=== PATIENT | male | born 1935 | race Caucasian/White ===

== ENCOUNTER 2017-04-30 11:33 | Inpatient (IN) | payer MEDICARE, MEDICAID ==
--- NOTE | 2017-04-30 12:41 | ED PDOC ---
HPI: Psych/Substance Abuse Time Seen by Provider: 04/30/17 11:51 Chief Complaint (Nursing): Psychiatric Evaluation Chief Complaint (Provider): Psych evaluation History Per: Patient History/Exam Limitations: no limitations Onset/Duration Of Symptoms: Days (1) Additional Complaint(s): Patient is an 82 y/o male with no known psychiatric history brought to the emergency department by EMS for a psych evaluation. Reports that workers had come to his apartment today, pounding on his door, to change his locks but he was too afraid to open the door. Instead he urged them to break it down with force. Police and EMS were then called in. Admits that he is depressed and lives alone. Denies suicidal ideation, homicidal ideation, hallucinations, or other complaints. PCP: none provided. Past Medical History Reviewed: Historical Data, Nursing Documentation, Vital Signs Vital Signs: Last Vital Signs Temp 98.7 F 04/30/17 11:37 Pulse 107 H 04/30/17 11:37 Resp 18 04/30/17 11:37 BP 152/91 H 04/30/17 11:37 Pulse Ox 97 04/30/17 11:37 - Medical History Other PMH: Psoriasis - Family History Family History: States: Unknown Family Hx - Social History Current smoker - smoking cessation education provided: No Ex-Smoker (has not smoked in the last 12 months): No Alcohol: None Drugs: Denies - Home Medications Home Medications: Ambulatory Orders Medication Instructions Recorded No Known Home Med 04/30/17 - Allergies Allergies/Adverse Reactions: Allergies Allergy/AdvReac Type Severity Reaction Status Date / Time No Known Allergies Allergy Verified 05/02/14 19:25 Review of Systems ROS Statement: Except As Marked, All Systems Reviewed And Found Negative Psych: Positive for: Depression. Negative for: Suicidal ideation (or homicidal ideation), Other (hallucinations) Physical Exam - Reviewed Nursing Documentation Reviewed: Yes Vital Signs Reviewed: Yes - Physical Exam Appears: Positive for: No Acute Distress (comfortable). Negative for: Uncomfortable Head Exam: Positive for: ATRAUMATIC, NORMAL INSPECTION, NORMOCEPHALIC Skin: Positive for: Normal Color, Warm, Dry Eye Exam: Positive for: Normal appearance Neck: Positive for: Normal Cardiovascular/Chest: Positive for: Regular Rate, Rhythm. Negative for: Murmur Respiratory: Positive for: Normal Breath Sounds. Negative for: Accessory Muscle Use, Respiratory Distress Extremity: Positive for: Normal ROM Neurologic/Psych: Positive for: Alert, Oriented (x3) - Laboratory Results Result Diagrams: 04/30/17 15:50 04/30/17 15:50 - ECG O2 Sat by Pulse Oximetry: 97 (RA) Pulse Ox Interpretation: Normal Medical Decision Making Medical Decision Makin:00 Initial impression: psych evaluation, possible depression Crisis evaluation pending. 1515 As per forensic social worker Ana, patient needs labs for medical clearance 1620 All labs reviewed. In my clinical judgment patient is medically cleared and stable for psychiatric admission. 163 Patient signs in and accepted to psych service under Dr Mai for depression ~ Scribe Attestation: Documented by María Hernandez, acting as a scribe for THAO Rodriguez. Provider Scribe Attestation: All medical record entries made by the Scribe were at my direction and personally dictated by me. I have reviewed the chart and agree that the record accurately reflects my personal performance of the history, physical exam, medical decision making, and the department course for this patient. I have also personally directed, reviewed, and agree with the discharge instructions and disposition. Disposition - Clinical Impression Clinical Impression: Depressive disorder - Patient ED Disposition Is Patient to be Admitted: Yes - Disposition Disposition Time: 16:30 Condition: STABLE - Pt Status Changed To: Hospital Disposition Of: Inpatient - Admit Certification Admit to Inpatient:: After my assessment, the patient will require hospitalization for at least two midnights. This is because of the severity of symptoms shown, intensity of services needed, and/or the medical risk in this patient being treated as an outpatient. - POA Present On Arrival: None
[2017-04-30 16:06] LABS: BASO % 0.4 % (0.0-2.0); EOS % 0.1 % (0.0-4.0); HEMATOCRIT 42.9 % (35.0-51.0); LYMPH % 37.7 % (20.0-40.0); MEAN CELL VOLUME 95.8 fl (80.0-94.0); MEAN CORPUSCULAR HEMOGLOBIN 32.1 pg (27.0-31.0); MEAN CORPUSCULAR HGB CONC 33.5 g/dL (33.0-37.0); MEAN PLATELET VOLUME 8.2 fl (7.2-11.7); MONO # 0.6 K/uL (0.0-0.8); NEUT # 4.4 K/uL (1.8-7.0); NEUT % 54.8 % (50.0-75.0); RED CELL DISTRIBUTION WIDTH 13.5 % (11.5-14.5)
[2017-04-30 16:16] LABS: ALCOHOL SERUM < 10 mg/dl (0-10); BLOOD UREA NITROGEN 18 mg/dl (9-20); CARBON DIOXIDE 27 mmol/L (22-30); CHLORIDE 99 mmol/L (98-107); GFR AFRICAN-AMERICAN > 60; GLUCOSE,RANDOM 143 mg/dL (75-110); POTASSIUM 4.1 MMOL/L (3.6-5.0); SODIUM 137 mmol/l (132-148)
[2017-04-30 16:25] LABS: RBC URINE 7 /hpf (0-3); URINE BACTERIA RARE (<OCC); URINE BILIRUBIN NEGATIVE (NEGATIVE); URINE BLOOD SMALL (NEGATIVE); URINE COLOR AMBER (YELLOW); URINE GLUCOSE (UA) NEG (Normal); URINE KETONE TRACE mg/dL (NEGATIVE); URINE LEUKOCYTE ESTERASE NEG Leu/uL (Negative); URINE PROTEIN 30 mg/dL (NEGATIVE); URINE UROBILINOGEN 0.2-1.0 mg/dL (0.2-1.0); WBC URINE 3 /hpf (0-5)
[2017-04-30 16:45] VITALS: O2SAT 97
[2017-04-30] MEDS ORDERED: Bismuth Subsalicylate 262 mg/15 ml Sus (240 ml) PO PRN (20:00)
[2017-04-30] MEDS ORDERED: Alum-Mag Hydrox-Simethicone Susp (30 mL) PO PRN (20:00)
[2017-04-30] MEDS ORDERED: Magnesium Hydroxide Susp 30 ml UD PO PRN (20:00)
--- NOTE | 2017-04-30 20:00 | PCM.BM ---
<Elvia Curry - Last Filed: 04/30/17 19:59> Treatment Plan Problems - Problems identified on initial assessmt Hopelessness/Helplessness Date Initiated: 04/30/17 Time Initiated: 19:59 Assessment reference: NA Status: Active Treatment assets and liabiliti Patient Assests: adapts well, cooperative, insightful, good support system, negotiates basic needs Patient Liabilities: live alone - Milieu Protocol Maintain good personal hygiene: daily Encourage regular showers, daily Remind patient to perform daily oral care, daily Assist patient to perform ADL's Maintain personal safety: every shift Educate patient to report safety concerns to staff, every shift Monitor environment for contraband/sharps Medication safety: Monitor for expected outcome, potential side effects: every shift, Assess barriers to learning: every shift, Assess readiness for medication education: every shift <Razia Kaur - Last Filed: 05/01/17 09:49> - Diagnosis (1) Major depressive disorder with psychotic features Status: Acute Interventions: Medication management, Individual and group therapy, Psychoeducation 05/01/17 09:49 <Joshua Bailey - Last Filed: 05/01/17 14:48> Family Contact Family involvement: Family/SO is involved Family contact: Patient agrees to contact, Family has been contacted by patient , Telephone contact initiated by staff Family contact name: Mirta Stanley - Niece Family contacted how many times per week?: 3 Family contact comment: As per Mirta Lizeth, pt's niece, pt has been depressed for a very long time. Mirta believes due to lonliness and not having a TV or phone. Pt resides in senior housing and only has Medicare insurance. Mirta was hoping that pt could get a home health aid as he is alone so often. Mirta reported that she works 10-12 hours a day and has limited time to see the pt. Mirta reported that pt thinks he smells and that is why people do not come see him. Urology Surgeon explained medications and what their purpose is. Urology Surgeon will continue to update Mirta on pt's care. - Goals for Treatment Patient goals for treatment: Pt would like his mood to improve. Patient's family/SO goals for treatment: Mirta would like pt's mood to improve and community resources identified so pt does not have to be so lonely. Discharge/Continuing Care - Education Needs Education Needs: Family Medication, Family Diagnosis/Disease Process, Family Placement options, Family Community resources, Family Personal Hygiene/Grooming , Family Aftercare Safety Plan, Patient Medication, Patient Diagnosis/Disease Process, Patient Coping Skills, Patient Placement options, Patient Community resources, Patient Personal Hygiene/Grooming, Patient Aftercare Safety Plan - Discharge Discharge Criteria: Tolerates medication w/o severe side effects, Free of Suicidal thoughts, Normal sleep pattern, Ability to care for self, Reduction of target symptoms Discharge to:: Home - Treatment Team Participation Discussed with Family/SO: Yes Was Patient/Family/SO present at Treatment Team Meeting: Yes
[2017-05-01 07:27] LABS: IRON 65 ug/dL (49-181)
[2017-05-01 07:38] LABS: T4 8.54 ug/dl (5.5-11.0)
[2017-05-01 07:51] LABS: THYROID STIMULATING HORMONE 1.72 mIU/ML (0.46-4.68)
[2017-05-01] MEDS ORDERED: Influenza Vaccine 18yr & older 0.5 ML/45 MCG SYR IM ONE (09:00)
--- NOTE | 2017-05-01 12:26 | PCM.PSYCH ---
Initial Psychiatric Evaluation - Initial Psychiatric Evaluation Type of Admission: Voluntary Legal Status: Capacity Chief Complaint (in patient's own words): "I'm depressed." Patient's Reaction to Hospitalization: HPI: 82 yo male presents w/ worsening depression, feelings of loneliness, concerns that he is malodorous and recent auditory hallucinations. He denies current ideation to harm himself or others. Patient states that he bathes 2-3 times /day due to concerns about his odor, which he could not describe. He reports that hear hears intermittent voices, last heard a few days ago and can not distinguish the voices or what they say. He denied acute paranoia to editorial writer, but may also be having some intermittent paranoia as per the history. +sleep disturbances. A + O x self, Apr 2017, location and situation. Additional information from the crisis note: 82/ Y/O male who was brought in by [facility] ambulance for psych evaluation. Ems reports locks were to be changed in his apartment. Pt was refusing to open doors and told them to knock the door down. Pt accompanied by niece who reports pt was fearful of someone pounding door and refused to open it. Patient denied SI/HI, patient admitted feeling very depressed as he is alone all the time. Patient presented fearful, patient is alerted and oriented 3X. Patient could respond who is the president, year and day of the week. Patient stated that he have a body odor all the time, Patient states that he had to take two baths a day and put perfume but he still can smell the odor. Patient's niece stated that patient believes that no one is visiting him because he have an odor. CW discussed admission with patient who agreed that he would like to be admitted. Patient's relative was concerned about the language barriers and asked if doctor speaks malay. Trichologist received collateral from patient's niece, Mirta Stanley [phone], who stated that patient had lost his keys, and someone was in the apartment to change the locks, patient refused to open the door because he was scared, and asked them to brake the door. Niece was informed and gave permission for management to open the door with a master coto and cut the chain. Ms. Stanley states that patient is very lonely, she wants to retired at the end of the year to spend more time with patient. Ms. Stanley don't have a POA, but wanted for patient to give verbal approval to allow her to make decisions for patient. PMHx: Denies acute medical issues; does not have a PCP PPHx: Denies past psychiatric history SHx: Completed 12th graded. 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 Lives alone in an apt. Never , no kids. ALL: NKDA Current Medications: Active Medications Generic Name Dose Route Start Last Admin Trade Name Freq PRN Reason Stop Dose Admin Acetaminophen 650 mg 04/30/17 20:00 Tylenol 325mg Tab PO Q4 PRN Pain, moderate (4-7) Al Hydrox/Mg Hydrox/Simethicone 30 ml 04/30/17 20:00 Maalox Plus 30 Ml PO Q4 PRN Dyspepsia Bismuth Subsalicylate 524 mg 04/30/17 20:00 Pepto-Bismol PO Q4 PRN Diarrhea Lorazepam 0.5 mg 04/30/17 20:00 Ativan PO 05/14/17 20:01 HS PRN Insomnia Lorazepam 0.5 mg 04/30/17 20:00 Ativan PO 05/14/17 20:01 Q6 PRN Anixety/Agitation Magnesium Hydroxide 30 ml 04/30/17 20:00 Milk Of Magnesia PO HS PRN Constipation Mirtazapine 7.5 mg 04/30/17 22:00 04/30/17 21:15 Remeron PO 7.5 mg HS GERMÁN Administration Risperidone 0.25 mg 05/01/17 22:00 Risperdal Tab PO HS GERMÁN Past Psychiatric History - Past Psychiatric History Previous Treatment History: None Pertinent Medical Hx (Current Medical&Sleep Prob, Allergies): Allergies Allergy/AdvReac Type Severity Reaction Status Date / Time No Known Allergies Allergy Verified 05/02/14 19:25 No Known Home Med 04/30/17 Review of Systems - Psychiatric Psychiatric: As Per HPI, Abnormal Sleep Pattern, Anhedonia, Auditory Hallucinations, Behavioral Changes, Depression, Hallucinations, Paranoia Mental Status Examination - Personal Presentation Personal Presentation: Looks stated age - Affect Affect: Depressed - Motor Activity Motor Activity: Calm - Reliability in Providing Information Reliability in Providing Information: Fair (Fair but limited, due to possible cognitive impairment) - Speech Speech: Coherent - Mood Mood: Depressed - Formal Thought Process Formal Thought Process: Hallucinations (Denies current, but seemed internally preoccupied), Other (Poverty of speech) - Hallucinations/Delusions Hallucinations: Olfactory - Obsessions/Compulsions Obsessions: No Compulsions: No - Cognitive Functions Orientation: Person, Place, Situation, Time Sensorium: Alert Judgement: Intact, as evidence by: Insight regarding need for hospitalization Memory: Recent intact, as evidence by: Ability to recall events of the day - Risk Risk: Diminished functioning - Strength & Assets Inventory Strength & Assets Inventory: Family support, Cooperative - Limitations Limitations: Living alone DSM 5 DX - DSM 5 DSM 5 Diagnosis: Major Depressive Disorder w/ Psychotic features; rule out Neurocognitive Impairment - Recommended/Plan of Treatment Treatment Recommendations and Plan of Treatment: Major Depressive Disorder w/ Psychotic features; rule out Neurocognitive Impairment; patient needs acute inpatient hospitalization for treatment and safety -Admit to geriatric psychiatry -Individual and group therapy -Start Remeron 7.5 mg PO HS -Start Risperdal 0.25 mg PO HS -Obtain collateral history -Disposition planning -Medicine consult Projected ELOS: 5-7 days Discharge Plan and Discharge Criteria: Discharge when psychiatrically stable
[2017-05-01 12:59] LABS: FOLATE 11.8 ng/mL
--- NOTE | 2017-05-01 13:22 | CP.PCM.CON ---
<Brielle Alanis - Last Filed: 05/01/17 14:45> History of Present Illness - History of Present Illness History of Present Illness: Hospitalist Consult Note 82 year old Khmer speaking male patient admitted from ED for worsening depression, recent auditory hallucinations, and olfactory delusions. HPI obtained with assistance of broiler supervisor. Patient states he has had depression for 5 years and received treatment for 1 year. Patient states he has since stopped taking any medications and has not followed up with a psychiatrist. Patient states his depression has worsened over the past 2-3 months, and has not been able to sleep properly as a result. Patient admits to frequent auditory hallucinations telling him to sleep. Denies visual hallucinations, suicidal ideations, homicidal ideations. Patient otherwise has no medical complaints. Patient denies N/V/F/D/C/SOB/chest palpitations. 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 Meds: see med list All: NKDA Review of Systems - Constitutional Constitutional: absent: Chills, Fever, Headache, Weight Gain, Weight Loss - EENT Eyes: absent: Change in Vision, Diplopia, Irritation, Pain, Photophobia Ears: absent: Tinnitus, Abnormal Hearing, Dizziness Nose/Mouth/Throat: absent: Nose Pain, Dysphagia, Hoarsness, Mouth Pain, Tongue Swelling, Facial Pain, Neck Pain - Cardiovascular Cardiovascular: absent: Chest Pain, Radiating Pain, Syncope - Respiratory Respiratory: absent: Cough, Wheezing - Gastrointestinal Gastrointestinal: absent: Abdominal Pain, Constipation, Cramping, Diarrhea, Melena, Nausea, Vomiting - Genitourinary Genitourinary: absent: Dysuria, Flank Pain, Pyuria, Nocturia, Urinary Frequency , Urinary Hesitance, Urinary Urgency - Musculoskeletal Musculoskeletal: absent: Arthralgias, Joint Swelling, Muscle Weakness, Myalgias , Numbness - Integumentary Integumentary: absent: Dry Skin, Lesions, Skin Pain, Sores, Wounds - Neurological Neurological: Disequilibrium. absent: Confusion, Syncope, Tingling, Weakness - Psychiatric Psychiatric: Anxiety, Auditory Hallucinations, Depression, Hopelessness, Paranoia. absent: Hallucinations, Homicidal Ideation, Suicidal Ideation, Visual Hallucinations, Tactile Hallucinations Additional comments: Olfactory delusions Past Patient History - Past Social History Alcohol: None Drugs: Denies - CARDIAC Hx Cardiac Disorders: No Hx Hypertension: No - PULMONARY Hx Tuberculosis: No - NEUROLOGICAL HX Cerebrovascular Accident: No Hx Seizures: No - ENDOCRINE/METABOLIC Hx Endocrine Disorders: No - HEMATOLOGICAL/ONCOLOGICAL Hx Cancer: No Hx Human Immunodeficiency Virus (HIV): No - INTEGUMENTARY Hx Psoriasis: Yes - MUSCULOSKELETAL/RHEUMATOLOGICAL Hx Falls: No - GENITOURINARY/GYNECOLOGICAL Hx Sexually Transmitted Disorders: No - PSYCHIATRIC Hx Depression: Yes Hx Substance Use: No - ANESTHESIA Hx Anesthesia: No Meds Allergies/Adverse Reactions: Allergies Allergy/AdvReac Type Severity Reaction Status Date / Time No Known Allergies Allergy Verified 05/02/14 19:25 - Medications Medications: Current Medications Acetaminophen (Tylenol 325mg Tab) 650 mg PO Q4 PRN PRN Reason: Pain, moderate (4-7) Al Hydrox/Mg Hydrox/Simethicone (Maalox Plus 30 Ml) 30 ml PO Q4 PRN PRN Reason: Dyspepsia Bismuth Subsalicylate (Pepto-Bismol) 524 mg PO Q4 PRN PRN Reason: Diarrhea Lorazepam (Ativan) 0.5 mg PO HS PRN PRN Reason: Insomnia Stop: 05/14/17 20:01 Lorazepam (Ativan) 0.5 mg PO Q6 PRN PRN Reason: Anixety/Agitation Stop: 05/14/17 20:01 Magnesium Hydroxide (Milk Of Magnesia) 30 ml PO HS PRN PRN Reason: Constipation Mirtazapine (Remeron) 7.5 mg PO HS GERMÁN Last Admin: 04/30/17 21:15 Dose: 7.5 mg Risperidone (Risperdal Tab) 0.25 mg PO HS GERMÁN Physical Exam - Constitutional Appears: Well, Non-toxic, No Acute Distress - Head Exam Head Exam: ATRAUMATIC, NORMAL INSPECTION, NORMOCEPHALIC - Eye Exam Eye Exam: EOMI, Normal appearance, PERRL Pupil Exam: NORMAL ACCOMODATION - ENT Exam ENT Exam: Mucous Membranes Moist, Normal Exam, Normal External Ear Exam - Neck Exam Neck exam: Positive for: Normal Inspection. Negative for: Tenderness - Respiratory Exam Respiratory Exam: Clear to Auscultation Bilateral, NORMAL BREATHING PATTERN. absent: Rales, Rhonchi, Wheezes - Cardiovascular Exam Cardiovascular Exam: REGULAR RHYTHM, +S1, +S2. absent: Diastolic murmur, JVD, Systolic Murmur - GI/Abdominal Exam GI & Abdominal Exam: Normal Bowel Sounds, Soft. absent: Tenderness - Rectal Exam Rectal Exam: Deferred - Extremities Exam Extremities exam: Positive for: normal inspection. Negative for: pedal edema, tenderness - Back Exam Back exam: NORMAL INSPECTION. absent: muscle spasm, tenderness - Neurological Exam Neurological exam: Alert, Oriented x3 - Psychiatric Exam Psychiatric exam: Anxious, Depressed - Skin Skin Exam: Dry, Intact, Normal Color, Warm Results - Vital Signs Recent Vital Signs: Last Vital Signs Temp 98.4 F 05/01/17 05:29 Pulse 71 05/01/17 05:29 Resp 18 05/01/17 05:29 BP 120/61 05/01/17 05:29 Pulse Ox 97 04/30/17 16:44 - Labs Result Diagrams: 04/30/17 15:50 04/30/17 15:50 Labs: Laboratory Results - last 24 hr 04/30/17 04/30/17 04/30/17 15:50 15:50 15:50 WBC 8.0 RBC 4.48 Hgb 14.4 Hct 42.9 MCV 95.8 H MCH 32.1 H MCHC 33.5 RDW 13.5 Plt Count 169 MPV 8.2 Neut % (Auto) 54.8 Lymph % (Auto) 37.7 [place] % (Auto) 7.0 Eos % (Auto) 0.1 Baso % (Auto) 0.4 Neut # 4.4 Lymph # 3.0 [place]fe # 0.6 Eos # 0.0 Baso # 0.0 Sodium 137 Potassium 4.1 Chloride 99 Carbon Dioxide 27 Anion Gap 15 BUN 18 Creatinine 0.9 Est GFR ( Amer) > 60 Est GFR (Non-Af Amer) > 60 Random Glucose 143 H Hemoglobin A1c Calcium 9.0 Iron TIBC % Saturation Ferritin Triglycerides Cholesterol LDL Cholesterol Direct HDL Cholesterol Vitamin B12 Free T4 Thyroxine (T4) TSH 3rd Generation Urine Color Urine Clarity Urine pH Ur Specific [place] Urine Protein Urine Glucose (UA) Urine Ketones Urine Blood Urine Nitrate Urine Bilirubin Urine Urobilinogen Ur Leukocyte Esterase Urine RBC (Auto) Urine Microscopic WBC Urine Bacteria Hyaline Casts Salicylates < 1.0 Urine Opiates Screen Urine Methadone Screen Acetaminophen < 10.0 L Ur Barbiturates Screen Ur Phencyclidine Scrn Ur Amphetamines Screen U Benzodiazepines Scrn U Oth Cocaine Metabols U Cannabinoids Screen Alcohol, Quantitative < 10 04/30/17 04/30/17 05/01/17 15:50 15:50 06:30 WBC RBC Hgb Hct MCV MCH MCHC RDW Plt Count MPV Neut % (Auto) Lymph % (Auto) [place] % (Auto) Eos % (Auto) Baso % (Auto) Neut # Lymph # [place] # Eos # Baso # Sodium Potassium Chloride Carbon Dioxide Anion Gap BUN Creatinine Est GFR ( Amer) Est GFR (Non-Af Amer) Random Glucose Hemoglobin A1c Calcium Iron TIBC % Saturation Ferritin 159.0 Triglycerides 97 Cholesterol 158 LDL Cholesterol Direct 90 HDL Cholesterol 47 Vitamin B12 411 Free T4 Thyroxine (T4) 8.54 TSH 3rd Generation 1.72 Urine Color [place] Urine Clarity Cloudy Urine pH 5.0 Ur Specific [place] 1.031 H Urine Protein 30 Urine Glucose (UA) Neg Urine Ketones Trace Urine Blood Small Urine Nitrate Negative Urine Bilirubin Negative Urine Urobilinogen 0.2-1.0 Ur Leukocyte Esterase Neg Urine RBC (Auto) 7 H Urine Microscopic WBC 3 Urine Bacteria Rare Hyaline Casts 3-5 H Salicylates Urine Opiates Screen Negative Urine Methadone Screen Negative Acetaminophen Ur Barbiturates Screen Negative Ur Phencyclidine Scrn Negative Ur Amphetamines Screen Negative U Benzodiazepines Scrn Negative U Oth Cocaine Metabols Negative U Cannabinoids Screen Negative Alcohol, Quantitative 05/01/17 05/01/17 05/01/17 06:30 06:30 06:30 WBC RBC Hgb Hct MCV MCH MCHC RDW Plt Count MPV Neut % (Auto) Lymph % (Auto) [place] % (Auto) Eos % (Auto) Baso % (Auto) Neut # Lymph # [place] # Eos # Baso # Sodium Potassium Chloride Carbon Dioxide Anion Gap BUN Creatinine Est GFR ( Amer) Est GFR (Non-Af Amer) Random Glucose Hemoglobin A1c 6.0 Calcium Iron 65 TIBC 252 % Saturation 26 Ferritin Triglycerides Cholesterol LDL Cholesterol Direct HDL Cholesterol Vitamin B12 Free T4 1.14 Thyroxine (T4) TSH 3rd Generation Urine Color Urine Clarity Urine pH Ur Specific [place] Urine Protein Urine Glucose (UA) Urine Ketones Urine Blood Urine Nitrate Urine Bilirubin Urine Urobilinogen Ur Leukocyte Esterase Urine RBC (Auto) Urine Microscopic WBC Urine Bacteria Hyaline Casts Salicylates Urine Opiates Screen Urine Methadone Screen Acetaminophen Ur Barbiturates Screen Ur Phencyclidine Scrn Ur Amphetamines Screen U Benzodiazepines Scrn U Oth Cocaine Metabols U Cannabinoids Screen Alcohol, Quantitative Assessment & Plan (1) Depressive disorder Assessment and Plan: Management per psychiatry Status: Chronic <Tammi Manrique - Last Filed: 05/02/17 14:47> Meds - Medications Medications: Current Medications Acetaminophen (Tylenol 325mg Tab) 650 mg PO Q4 PRN PRN Reason: Pain, moderate (4-7) Al Hydrox/Mg Hydrox/Simethicone (Maalox Plus 30 Ml) 30 ml PO Q4 PRN PRN Reason: Dyspepsia Bismuth Subsalicylate (Pepto-Bismol) 524 mg PO Q4 PRN PRN Reason: Diarrhea Lorazepam (Ativan) 0.5 mg PO HS PRN PRN Reason: Insomnia Stop: 05/14/17 20:01 Lorazepam (Ativan) 0.5 mg PO Q6 PRN PRN Reason: Anixety/Agitation Stop: 05/14/17 20:01 Magnesium Hydroxide (Milk Of Magnesia) 30 ml PO HS PRN PRN Reason: Constipation Mirtazapine (Remeron) 15 mg PO HS GERMÁN Risperidone (Risperdal Tab) 0.5 mg PO HS GERMÁN Results - Vital Signs Recent Vital Signs: Last Vital Signs Temp 97.2 F L 05/02/17 06:00 Pulse 66 05/02/17 06:00 Resp 18 05/02/17 06:00 BP 100/64 05/02/17 06:00 Pulse Ox 97 04/30/17 16:44 - Labs Result Diagrams: 04/30/17 15:50 04/30/17 15:50 Labs: Laboratory Results - last 24 hr 05/01/17 06:30 RPR Nonreactive Attending/Attestation - Attestation I have personally seen and examined this patient.: Yes I have fully participated in the care of the patient.: Yes I have reviewed all pertinent clinical information: Yes Notes (Text): 05/02/17 14:47 Seen, examined, and discussed with Resident. Agree with findings and plan as above.
--- NOTE | 2017-05-01 16:28 | CT ---
PROCEDURE: CT HEAD WITHOUT CONTRAST. HISTORY: New onset psychosis; r/o organic disease COMPARISON: No prior study available for comparison TECHNIQUE: Axial computed tomography images were obtained through the head/brain without intravenous contrast. Radiation dose: Total exam DLP = 900.7 mGy-cm. This CT exam was performed using one or more of the following dose reduction techniques: Automated exposure control, adjustment of the mA and/or kV according to patient size, and/or use of iterative reconstruction technique. FINDINGS: HEMORRHAGE: No acute parenchymal, subarachnoid or extra-axial hemorrhage. BRAIN: Mild chronic periventricular white matter ischemic changes. There are a few scattered chronic appearing bilateral basal nuclei lacunar type infarcts. Moderate generalized volume loss. Mild vascular calcifications both carotid siphons VENTRICLES: No obstructive hydrocephalus. . CALVARIUM: There are no acute calvarial fractures. PARANASAL SINUSES: Small focal area polypoid like mucosal thickening right maxillary antrum. MASTOID AIR CELLS: Unremarkable as visualized. No inflammatory changes. OTHER FINDINGS: None. IMPRESSION: No acute intracranial hemorrhage. Mild moderate chronic white matter ischemic changes with chronic bilateral basal nuclei lacunar type infarcts. Moderate generalized volume loss.
--- NOTE | 2017-05-02 12:23 | PCM.PYCHPN ---
Psychiatric Progress Note - Psychiatric Progress Note Patient seen today, length of contact: Patient evaluated, case discussed w/ team , chart reviewed Patient Chief Complaint: "I'm depressed." Problems Identified/Issues Discussed: Patient continues to report feeling depressed w/ constricted affect. He continues to be preoccupied that he has a body odor (possible olfactory hallucination vs paranoia). He engages appropriately with the community and has been observed to be eating well. No adverse effects to medications reported. Diagnostic Results: 05/01/17; CT head w/o contrast: No acute intracranial hemorrhage. Mild moderate chronic white matter ischemic changes w/ chornic bilateral basal nuclei lacuna type infarcts. Moderate generalized volume loss. Medication Change: Yes (Increase Remeron to 15 mg PO HS, Increase Risperdal to 0.5 mg PO HS) Medical Record Reviewed: Yes Consults ordered or reviewed: Medicine consult Mental Status Examination - Cognitive Function Orientation: Person, Place, Situation, Time Memory: Impaired Decription of patient's judgement and insights: Fair I/J - Mood Mood: Depressed - Affect Affect: Depressed - Speech Speech: Soft - Formal Thought Process Formal Thought Process: Hallucinations (Olfactory hallucinations vs paranoia), Other (Poverty of speech) Psychotic Thoughts and Behaviors: +Olfactory hallucinations and/or paranoia - Suicidal Ideation Suicidal Ideation: No - Homicidal Ideation Homicidal Ideation: No Goal/Treatment Plan - Goal/Treatment Plan Need for Continued Stay: Remain at risks for inpatient hospitalization, Severe depression anxiety Progress Toward Problem(s) and Goals/Treatment Plan: Major Depressive Disorder w/ Psychotic features; rule out Neurocognitive Impairment; patient needs acute inpatient hospitalization for treatment and safety -Admit to geriatric psychiatry -Individual and group therapy -Increase Remeron to 15 mg PO HS -Increase Risperdal to 0.5 mg PO HS -Obtain collateral history -Disposition planning -Medicine consult Estimated Date of D/C: 05/06/17
--- NOTE | 2017-05-03 09:16 | PCM.PYCHPN ---
Psychiatric Progress Note - Psychiatric Progress Note Patient seen today, length of contact: Patient evaluated, case discussed w/ team , chart reviewed Patient Chief Complaint: "I'm depressed." Problems Identified/Issues Discussed: No new events overnight. Patient continues to report feeling depressed w/ constricted affect. He continues to be preoccupied that he has a body odor ( possible olfactory hallucination vs paranoia). He engages appropriately with the community and has been observed to be eating well. No adverse effects to medications reported. Diagnostic Results: 05/01/17; CT head w/o contrast: No acute intracranial hemorrhage. Mild moderate chronic white matter ischemic changes w/ chornic bilateral basal nuclei lacuna type infarcts. Moderate generalized volume loss. Medication Change: No Medical Record Reviewed: Yes Consults ordered or reviewed: Medicine consult appreciated Mental Status Examination - Cognitive Function Orientation: Person, Place, Situation, Time Memory: Impaired Decription of patient's judgement and insights: Fair I/J - Mood Mood: Depressed - Affect Affect: Depressed - Speech Speech: Soft - Formal Thought Process Formal Thought Process: Hallucinations (Olfactory hallucinations vs paranoia), Other (Poverty of speech) Psychotic Thoughts and Behaviors: +Olfactory hallucinations and/or paranoia - Suicidal Ideation Suicidal Ideation: No - Homicidal Ideation Homicidal Ideation: No Goal/Treatment Plan - Goal/Treatment Plan Need for Continued Stay: Remain at risks for inpatient hospitalization, Severe depression anxiety Progress Toward Problem(s) and Goals/Treatment Plan: Major Depressive Disorder w/ Psychotic features; rule out Neurocognitive Impairment; patient needs continued acute inpatient hospitalization for treatment and safety. -Individual and group therapy -Continue Remeron 15 mg PO HS -Continue Risperdal 0.5 mg PO HS -Obtain collateral history -Disposition planning -Medicine consult appreciated Estimated Date of D/C: 05/06/17
--- NOTE | 2017-05-04 12:40 | PCM.PYCHPN ---
Psychiatric Progress Note - Psychiatric Progress Note Patient seen today, length of contact: Patient evaluated, case discussed w/ team , chart reviewed Patient Chief Complaint: "I'm depressed." Problems Identified/Issues Discussed: No new events overnight. Patient continues to report feeling depressed w/ constricted affect. He continues to be preoccupied that he has a body odor ( possible olfactory hallucination vs paranoia). He engages appropriately with the community and has been observed to be eating well. No adverse effects to medications reported. Diagnostic Results: 05/01/17; CT head w/o contrast: No acute intracranial hemorrhage. Mild moderate chronic white matter ischemic changes w/ chornic bilateral basal nuclei lacuna type infarcts. Moderate generalized volume loss. Medication Change: Yes (Increase Risperdal to 1 mg PO HS) Medical Record Reviewed: Yes Consults ordered or reviewed: Medicine consult appreciated Mental Status Examination - Cognitive Function Orientation: Person, Place, Situation, Time Memory: Impaired Decription of patient's judgement and insights: Fair I/J - Mood Mood: Depressed - Affect Affect: Depressed - Speech Speech: Soft - Formal Thought Process Formal Thought Process: Hallucinations (Olfactory hallucinations vs paranoia), Other (Poverty of speech) Psychotic Thoughts and Behaviors: +Olfactory hallucinations and/or paranoia - Suicidal Ideation Suicidal Ideation: No - Homicidal Ideation Homicidal Ideation: No Goal/Treatment Plan - Goal/Treatment Plan Need for Continued Stay: Remain at risks for inpatient hospitalization, Severe depression anxiety Progress Toward Problem(s) and Goals/Treatment Plan: Major Depressive Disorder w/ Psychotic features; rule out Neurocognitive Impairment; patient needs continued acute inpatient hospitalization for treatment and safety. -Individual and group therapy -Continue Remeron 15 mg PO HS -Increase Risperdal to 1 mg PO HS -Obtain collateral history -Disposition planning -Medicine consult appreciated Estimated Date of D/C: 05/07/17
--- NOTE | 2017-05-05 10:49 | PCM.PYCHPN ---
Psychiatric Progress Note - Psychiatric Progress Note Patient seen today, length of contact: Patient evaluated, case discussed w/ team , chart reviewed Patient Chief Complaint: "I'm depressed." Problems Identified/Issues Discussed: No new events overnight. Patient is starting to improve clinically. He is observed interacting with others and engaging appropriately in groups. He denies current preoccupation with his body odor and has not been noticed to be showering excessively. He engages appropriately with the community and has been observed to be eating well. No adverse effects to medications reported. Diagnostic Results: 05/01/17; CT head w/o contrast: No acute intracranial hemorrhage. Mild moderate chronic white matter ischemic changes w/ chornic bilateral basal nuclei lacuna type infarcts. Moderate generalized volume loss. Medication Change: No Medical Record Reviewed: Yes Consults ordered or reviewed: Medicine consult appreciated Mental Status Examination - Cognitive Function Orientation: Person, Place, Situation, Time Memory: Impaired Decription of patient's judgement and insights: Fair I/J - Mood Mood: Depressed - Affect Affect: Depressed - Speech Speech: Soft - Formal Thought Process Formal Thought Process: No Impairment Psychotic Thoughts and Behaviors: +Denies OH/paranoia - Suicidal Ideation Suicidal Ideation: No - Homicidal Ideation Homicidal Ideation: No Goal/Treatment Plan - Goal/Treatment Plan Need for Continued Stay: Remain at risks for inpatient hospitalization, Severe depression anxiety Progress Toward Problem(s) and Goals/Treatment Plan: Major Depressive Disorder w/ Psychotic features; rule out Neurocognitive Impairment; patient needs continued acute inpatient hospitalization for treatment and safety. -Individual and group therapy -Continue Remeron 15 mg PO HS -Continue Risperdal 1 mg PO HS -Obtain collateral history -Disposition planning -Medicine consult appreciated Estimated Date of D/C: 05/07/17
--- NOTE | 2017-05-06 08:50 | PCM.PYCHPN ---
Psychiatric Progress Note - Psychiatric Progress Note Patient seen today, length of contact: Patient evaluated, case discussed w/ team , chart reviewed Patient Chief Complaint: "I'm depressed." Problems Identified/Issues Discussed: Patient continues to report that he is feeling depressed w/ constricted affect and lack of motivation. He is observed interacting with others and engaging appropriately in groups. He denies current preoccupation with his body odor and has not been noticed to be showering excessively. He engages appropriately with the community and has been observed to be eating well. No adverse effects to medications reported. Diagnostic Results: 05/01/17; CT head w/o contrast: No acute intracranial hemorrhage. Mild moderate chronic white matter ischemic changes w/ chornic bilateral basal nuclei lacuna type infarcts. Moderate generalized volume loss. Medication Change: Yes (Increase Remeron to 30 mg PO HS) Medical Record Reviewed: Yes Consults ordered or reviewed: Medicine consult appreciated Mental Status Examination - Cognitive Function Orientation: Person, Place, Situation, Time Memory: Impaired Decription of patient's judgement and insights: Fair I/J - Mood Mood: Depressed - Affect Affect: Constricted, Depressed - Speech Speech: Soft - Formal Thought Process Formal Thought Process: No Impairment Psychotic Thoughts and Behaviors: +Denies OH/paranoia - Suicidal Ideation Suicidal Ideation: No - Homicidal Ideation Homicidal Ideation: No Goal/Treatment Plan - Goal/Treatment Plan Need for Continued Stay: Remain at risks for inpatient hospitalization, Severe depression anxiety Progress Toward Problem(s) and Goals/Treatment Plan: Major Depressive Disorder w/ Psychotic features; rule out Neurocognitive Impairment; patient needs continued acute inpatient hospitalization for treatment and safety. -Individual and group therapy -Increase Remeron to 30 mg PO HS -Continue Risperdal 1 mg PO HS -Obtain collateral history -Disposition planning -Medicine consult appreciated Estimated Date of D/C: 05/11/17
--- NOTE | 2017-05-07 08:23 | PCM.PYCHPN ---
Psychiatric Progress Note - Psychiatric Progress Note Patient seen today, length of contact: Patient evaluated, case discussed w/ team , chart reviewed Patient Chief Complaint: "I'm depressed." Problems Identified/Issues Discussed: Patient continues to report that he is feeling depressed w/ constricted affect and lack of motivation. He is irritable at times and seems disinterested in talking w/ typewriter ribbon winder at times. He is observed interacting with others and engaging appropriately in groups. He denies current preoccupation with his body odor and has not been noticed to be showering excessively. He engages appropriately with the community and has been observed to be eating well. No adverse effects to medications reported. Diagnostic Results: 05/01/17; CT head w/o contrast: No acute intracranial hemorrhage. Mild moderate chronic white matter ischemic changes w/ chornic bilateral basal nuclei lacuna type infarcts. Moderate generalized volume loss. Medication Change: No Medical Record Reviewed: Yes Consults ordered or reviewed: Medicine consult appreciated Mental Status Examination - Cognitive Function Orientation: Person, Place, Situation, Time Memory: Impaired Decription of patient's judgement and insights: Fair I/J - Mood Mood: Depressed - Affect Affect: Constricted, Depressed - Speech Speech: Soft - Formal Thought Process Formal Thought Process: No Impairment Psychotic Thoughts and Behaviors: +Denies OH/paranoia - Suicidal Ideation Suicidal Ideation: No - Homicidal Ideation Homicidal Ideation: No Goal/Treatment Plan - Goal/Treatment Plan Need for Continued Stay: Remain at risks for inpatient hospitalization, Severe depression anxiety Progress Toward Problem(s) and Goals/Treatment Plan: Major Depressive Disorder w/ Psychotic features; rule out Neurocognitive Impairment; patient needs continued acute inpatient hospitalization for treatment and safety. -Individual and group therapy -Continue Remeron 30 mg PO HS -Continue Risperdal 1 mg PO HS -Obtain collateral history -Disposition planning -Medicine consult appreciated Estimated Date of D/C: 05/11/17
--- NOTE | 2017-05-08 08:00 | PCM.PYCHPN ---
Psychiatric Progress Note - Psychiatric Progress Note Patient seen today, length of contact: Patient evaluated, case discussed w/ team , chart reviewed Patient Chief Complaint: "I'm okay." Problems Identified/Issues Discussed: Patient reports that his mood is starting to improve. He believes the treatment is helping him. He is calm/cooperative w/ securities underwriter and staff. he participates appropriately in group. He denies current preoccupation with his body odor and has not been noticed to be showering excessively. He engages appropriately with the community and has been observed to be eating well. No adverse effects to medications reported. Diagnostic Results: 05/01/17; CT head w/o contrast: No acute intracranial hemorrhage. Mild moderate chronic white matter ischemic changes w/ chornic bilateral basal nuclei lacuna type infarcts. Moderate generalized volume loss. Medication Change: Yes (Lower Risperdal to 0.5 mg PO HS) Medical Record Reviewed: Yes Consults ordered or reviewed: Medicine consult appreciated Mental Status Examination - Cognitive Function Orientation: Person, Place, Situation, Time Decription of patient's judgement and insights: Fair I/J - Mood Mood: Depressed (Seems less depressed) - Affect Affect: Constricted - Speech Speech: Soft - Formal Thought Process Formal Thought Process: No Impairment Psychotic Thoughts and Behaviors: +Denies OH/paranoia - Suicidal Ideation Suicidal Ideation: No - Homicidal Ideation Homicidal Ideation: No Goal/Treatment Plan - Goal/Treatment Plan Need for Continued Stay: Remain at risks for inpatient hospitalization, Severe depression anxiety Progress Toward Problem(s) and Goals/Treatment Plan: Major Depressive Disorder w/ Psychotic features; rule out Neurocognitive Impairment; patient needs continued acute inpatient hospitalization for treatment and safety. -Individual and group therapy -Continue Remeron 30 mg PO HS -Lower Risperdal to 0.5 mg PO HS to see if patient can tolerate lower dosage without becoming psychotic -Obtain collateral history -Disposition planning- will likely discharge on Thursday if patient continues to improve clinically -Medicine consult appreciated Estimated Date of D/C: 05/11/17
--- NOTE | 2017-05-08 10:34 | CP.PCM.CON ---
History of Present Illness - History of Present Illness History of Present Illness: Pt is an 82 year old male admitted to the geropsych unit and referred to the mortgage or loan underwriter for evaluation. On the DRS, pt scored an overall score of 109. Pt scored within normal limits on Attention, and Conceptualization tasks. Pt's Construction, Memory and Initation skills all fell in the Deficient Range. Pt acknowledged deficits in his memory when at home- consistent with the test results. Overall 109 Attention 32 (WNL) Construction 2 Conceptualization 33 (WNL Memory 15> Initiation 27 Assistance recommended in the home environment such as a homemaker services, day program participation, increased family monitoring/support Thank you for this referral, Dr. Johnson Past Patient History - Past Social History Alcohol: None Drugs: Denies - CARDIAC Hx Cardiac Disorders: No Hx Hypertension: No - PULMONARY Hx Tuberculosis: No - NEUROLOGICAL HX Cerebrovascular Accident: No Hx Seizures: No - ENDOCRINE/METABOLIC Hx Endocrine Disorders: No - HEMATOLOGICAL/ONCOLOGICAL Hx Cancer: No Hx Human Immunodeficiency Virus (HIV): No - INTEGUMENTARY Hx Psoriasis: Yes - MUSCULOSKELETAL/RHEUMATOLOGICAL Hx Falls: No - GENITOURINARY/GYNECOLOGICAL Hx Sexually Transmitted Disorders: No - PSYCHIATRIC Hx Depression: Yes Hx Substance Use: No - ANESTHESIA Hx Anesthesia: No Meds Allergies/Adverse Reactions: Allergies Allergy/AdvReac Type Severity Reaction Status Date / Time No Known Allergies Allergy Verified 05/02/14 19:25 - Medications Medications: Current Medications Acetaminophen (Tylenol 325mg Tab) 650 mg PO Q4 PRN PRN Reason: Pain, moderate (4-7) Al Hydrox/Mg Hydrox/Simethicone (Maalox Plus 30 Ml) 30 ml PO Q4 PRN PRN Reason: Dyspepsia Bismuth Subsalicylate (Pepto-Bismol) 524 mg PO Q4 PRN PRN Reason: Diarrhea Lorazepam (Ativan) 0.5 mg PO HS PRN PRN Reason: Insomnia Stop: 05/14/17 20:01 Lorazepam (Ativan) 0.5 mg PO Q6 PRN PRN Reason: Anixety/Agitation Stop: 05/14/17 20:01 Magnesium Hydroxide (Milk Of Magnesia) 30 ml PO HS PRN PRN Reason: Constipation Mirtazapine (Remeron) 30 mg PO HS GERMÁN Last Admin: 05/07/17 21:04 Dose: 30 mg Risperidone (Risperdal Tab) 0.5 mg PO HS GERMÁN Results - Vital Signs Recent Vital Signs: Last Vital Signs Temp 98.1 F 05/08/17 05:59 Pulse 67 05/08/17 05:59 Resp 18 05/08/17 05:59 BP 114/64 05/08/17 05:59 Pulse Ox 97 04/30/17 16:44 - Labs Result Diagrams: 04/30/17 15:50 04/30/17 15:50
--- NOTE | 2017-05-08 13:06 | PCM.BM ---
Treatment Plan Problems - Problems identified on initial assessmt Hopelessness/Helplessness Date Initiated: 04/30/17 Time Initiated: 19:59 Assessment reference: NA Status: Active Treatment assets and liabiliti Patient Assests: adapts well, cooperative, insightful, good support system, negotiates basic needs Patient Liabilities: live alone - Milieu Protocol Maintain good personal hygiene: daily Encourage regular showers, daily Remind patient to perform daily oral care, daily Assist patient to perform ADL's Maintain personal safety: every shift Educate patient to report safety concerns to staff, every shift Monitor environment for contraband/sharps Medication safety: Monitor for expected outcome, potential side effects: every shift, Assess barriers to learning: every shift, Assess readiness for medication education: every shift Milieu Narrative: Major Depressive Disorder w/ Psychotic features; rule out Neurocognitive Impairment; patient needs continued acute inpatient hospitalization for treatment and safety. -Individual and group therapy -Continue Remeron 30 mg PO HS -Lower Risperdal to 0.5 mg PO HS to see if patient can tolerate lower dosage without becoming psychotic -Obtain collateral history -Disposition planning- will likely discharge on Thursday if patient continues to improve clinically -Medicine consult appreciated Family Contact Family involvement: Family/SO is involved Family contact: Patient agrees to contact, Family has been contacted by patient , Telephone contact initiated by staff Family contact name: Mirta Stanley - Niece Family contacted how many times per week?: 3 Family contact comment: As per Mirta Lizeth, pt's niece, pt has been depressed for a very long time. Mirta believes due to lonliness and not having a TV or phone. Pt resides in senior housing and only has Medicare insurance. Mirta was hoping that pt could get a home health aid as he is alone so often. Mirta reported that she works 10-12 hours a day and has limited time to see the pt. Mirta reported that pt thinks he smells and that is why people do not come see him. Security Management Specialist explained medications and what their purpose is. Security Management Specialist will continue to update Mirta on pt's care. - Goals for Treatment Patient goals for treatment: Pt would like his mood to improve. Patient's family/SO goals for treatment: Mirta would like pt's mood to improve and community resources identified so pt does not have to be so lonely. Discharge/Continuing Care - Education Needs Education Needs: Family Medication, Family Diagnosis/Disease Process, Family Placement options, Family Community resources, Family Personal Hygiene/Grooming , Family Aftercare Safety Plan, Patient Medication, Patient Diagnosis/Disease Process, Patient Coping Skills, Patient Placement options, Patient Community resources, Patient Personal Hygiene/Grooming, Patient Aftercare Safety Plan - Discharge Discharge Criteria: Tolerates medication w/o severe side effects, Free of Suicidal thoughts, Normal sleep pattern, Ability to care for self, Reduction of target symptoms Discharge to:: Home - Treatment Team Participation Patient/Family/SO Statement: Major Depressive Disorder w/ Psychotic features; rule out Neurocognitive Impairment; patient needs continued acute inpatient hospitalization for treatment and safety. -Individual and group therapy -Continue Remeron 30 mg PO HS -Lower Risperdal to 0.5 mg PO HS to see if patient can tolerate lower dosage without becoming psychotic -Obtain collateral history -Disposition planning- will likely discharge on Thursday if patient continues to improve clinically -Medicine consult appreciated Discussed with Family/SO: Yes Was Patient/Family/SO present at Treatment Team Meeting: Yes Treatment Plan Review - Problem Hopelessness/Helplessness Date Initiated: 05/01/17 Time Initiated: 19:59 Progress toward outcomes: improved - Discharge / Continuing Care Discharge to:: Home Behavioral Health Services: Outpatient therapy, Adult day care Health Needs: Medications/Rx
--- NOTE | 2017-05-09 12:08 | PCM.PYCHPN ---
Psychiatric Progress Note - Psychiatric Progress Note Patient seen today, length of contact: Patient evaluated, case discussed w/ team , chart reviewed Patient Chief Complaint: i am ok Problems Identified/Issues Discussed: atient reports that his mood is starting to improve. He believes the treatment is helping him. He is calm/cooperative . he participates appropriately in group. He denies current preoccupation with his body odor and has not been noticed to be showering excessively. no changes in sleep or appetitel. No adverse effects to medications reported. DSM 5 Symptoms Update: major depression with psychotic features Medication Change: No (Lower Risperdal to 0.5 mg PO HS) Medical Record Reviewed: Yes Mental Status Examination - Cognitive Function Orientation: Person, Place, Situation, Time Attention: WNL Concentration: WNL Association: WNL Fund of Knowledge: Poor - Mood Mood: Depressed (Seems less depressed) - Affect Affect: Constricted - Speech Speech: Soft - Formal Thought Process Formal Thought Process: No Impairment - Suicidal Ideation Suicidal Ideation: No - Homicidal Ideation Homicidal Ideation: No Goal/Treatment Plan - Goal/Treatment Plan Need for Continued Stay: Remain at risks for inpatient hospitalization, Severe depression anxiety Progress Toward Problem(s) and Goals/Treatment Plan: continue current medications supportive and group therapy Estimated Date of D/C: 05/11/17
--- NOTE | 2017-05-10 13:46 | PCM.PYCHPN ---
Psychiatric Progress Note - Psychiatric Progress Note Patient seen today, length of contact: Patient evaluated, case discussed w/ team , chart reviewed Patient Chief Complaint: I am fine Problems Identified/Issues Discussed: patient reports that his mood is fine, He is calm/cooperative . He denies current preoccupation with his body odor, denied perceptual disturbances denied S/HI no reported changes in sleep or appetite, no reported side effects of medications. DSM 5 Symptoms Update: major depression with psychotic features Medication Change: No Medical Record Reviewed: Yes Mental Status Examination - Cognitive Function Orientation: Person, Place, Situation, Time Attention: WNL Concentration: WNL Association: WNL Fund of Knowledge: Poor - Mood Mood: Depressed (Seems less depressed) - Affect Affect: Constricted - Speech Speech: Soft - Formal Thought Process Formal Thought Process: No Impairment - Suicidal Ideation Suicidal Ideation: No - Homicidal Ideation Homicidal Ideation: No Goal/Treatment Plan - Goal/Treatment Plan Need for Continued Stay: Remain at risks for inpatient hospitalization, Severe depression anxiety Progress Toward Problem(s) and Goals/Treatment Plan: continue current medications supportive and group therapy Estimated Date of D/C: 05/11/17
[2017-05-10 15:06] VITALS: BP 119/58
[2017-05-11 06:11] VITALS: PULSE 62; RESP 19; TEMP 97.6
--- NOTE | 2017-05-11 08:58 | PCM.PYCHDC ---
Mental Status Examination - Mental Status Examination Orientation: Person, Place, Situation, Time Memory: Impaired (Mild dementia) Mood: Neutral Affect: Broad Speech: Appropriate Association: WNL Fund of Knowledge: WNL Formal Thought Process: No Impairment Description of patient's judgement and insight: Fair I/J Psychotic Thoughts and Behaviors: +Denies AH/VH/OH/paranoia/delusions Suicidal Ideation: No Current Homicidal Ideation?: No Discharge Summary - Discharge Note Reason for Hospitalization: HPI: 82 yo male presents w/ worsening depression, feelings of loneliness, concerns that he is malodorous and recent auditory hallucinations. He denies current ideation to harm himself or others. Patient states that he bathes 2-3 times /day due to concerns about his odor, which he could not describe. He reports that hear hears intermittent voices, last heard a few days ago and can not distinguish the voices or what they say. He denied acute paranoia to sign writer hand, but may also be having some intermittent paranoia as per the history. +sleep disturbances. A + O x self, Apr 2017, location and situation. Additional information from the crisis note: 82/ Y/O male who was brought in by [facility] [place] [facility] ambulance for psych evaluation. Ems reports locks were to be changed in his apartment. Pt was refusing to open doors and told them to knock the door down. Pt accompanied by niece who reports pt was fearful of someone pounding door and refused to open it. Patient denied SI/HI, patient admitted feeling very depressed as he is alone all the time. Patient presented fearful, patient is alerted and oriented 3X. Patient could respond who is the president, year and day of the week. Patient stated that he have a body odor all the time, Patient states that he had to take two baths a day and put perfume but he still can smell the odor. Patient's niece stated that patient believes that no one is visiting him because he have an odor. CW discussed admission with patient who agreed that he would like to be admitted. Patient's relative was concerned about the language barriers and asked if doctor speaks malian. Fuse [employer] received collateral from patient's niece, Mirta Stanley [phone], who stated that patient had lost his keys, and someone was in the apartment to change the locks, patient refused to open the door because he was scared, and asked them to brake the door. Niece was informed and gave permission for management to open the door with a master coto and cut the chain. Ms. Stanley states that patient is very lonely, she wants to retired at the end of the year to spend more time with patient. Ms. Stanley don't have a POA, but wanted for patient to give verbal approval to allow her to make decisions for patient. PMHx: Denies acute medical issues; does not have a PCP PPHx: Denies past psychiatric history SHx: Completed graded. 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 Lives alone in an apt. Never , no kids. ALL: NKDA Consultations:: List each consultation separately and include: 1. Reason for request. 2. Findings. 3. Follow-up Consultations: Medicine consult appreciated Psychology consult 05/08/17 Pt is an 82 year old male admitted to the geropsych unit and referred to the sign writer hand for evaluation. On the DRS, pt scored an overall score of 109. Pt scored within normal limits on Attention, and Conceptualization tasks. Pt's Construction, Memory and Initation skills all fell in the Deficient Range. Pt acknowledged deficits in his memory when at home- consistent with the test results. Overall 109 Attention 32 (WNL) Construction 2 Conceptualization 33 (WNL Memory 15> Initiation 27 Assistance recommended in the home environment such as a homemaker services, day program participation, increased family monitoring/support Thank you for this referral, Dr. Johnson Summary of Hospital Course include:: 1. Description of specific treatment plan utilized for patients during their course of treatmen. 2. Summarize the time- course for resolution of acute symptoms and/or regressed behaviors. 3. Describe issues identified and worked on during hospitalization. 4. Describe medication utilized. 5. Describe medical problems identified and treated. 6. Reassessment of suicide risk Summary of Hospital Course: Patient admitted to the geriatric psychiatric unit. Individual and group therapy were provided. Patient was stabilized on Remeron 30 mg PO HS and Risperdal 0.5 mg PO HS. He no longer reports depressed mood and no longer has olfactory hallucinations vs paranoia. His current treatment was explained to his family and they will be assisting him more at home. - Diagnosis (1) Major depressive disorder with psychotic features Current Visit: Yes Status: Acute - Final Diagnosis (DSM 5) Condition upon Discharge: STABLE DSM 5: Major depressive disorder w/ psychotic features Disposition: HOME/ ROUTINE Follow-up Treatment Plan: Major Depressive Disorder w/ Psychotic features; Dementia; patient is psychiatrically stable to return home w/ assistance from his family and outpatient psychiatric followup. -Individual and group therapy -Continue Remeron 30 mg PO HS -Continue Risperdal 0.5 mg PO HS -Obtain collateral history -Medicine and psychology consults appreciated -Discharge to home w/ outpatient follow-up Prescriptions/Medication Reconciliation: Mirtazapine [Remeron] 30 mg PO HS #30 tab risperiDONE [RisperDAL Tab] 0.5 mg PO HS #30 tab - Smoking Cessation Smoking Cessation Medication prescribed: No Reason for not providing: Not indicated - Antipsychotic Medications Pt discharged on 2 or more routine antipsychotic medications: No
== END 2017-05-11 13:15 | disposition home or self-care (01) | DRG 885 ==
LOC: H.ER 11:33 → H.ERHOLD 16:41 → H.STEP 18:30
PROVIDERS: ADMIT Psychiatry & Neurology Psychiatry; ATTEND Psychiatry & Neurology Psychiatry
PROC: GZHZZZZ Group Psychotherapy (ICD-10-PCS; principal; 2017-04-30)
PROC: GZ56ZZZ Individual Psychotherapy, Supportive (ICD-10-PCS; 2017-04-30)
PROC: 3E0234Z Introduction of Serum, Toxoid and Vaccine into Muscle, Percutaneous Approach (ICD-10-PCS; 2017-05-01)
DX: F32.3 Major depressive disorder, single episode, severe with psychotic features (principal); F41.9 Anxiety disorder, unspecified; L40.9 Psoriasis, unspecified; Z87.891 Personal history of nicotine dependence; Z23 Encounter for immunization